=== PATIENT | male | born 1995 ===

== ENCOUNTER 2020-04-09 22:06 | Emergency (ER) | payer SELFPAY ==
--- NOTE | 2020-04-09 23:09 | Event Note ---
ED Screening Note ED Screening Note: Patient presents to the emergency room with complaints of left ankle and foot pain that began just prior to arrival states playing basketball and fell off the concrete He has been ambulatory with discomfort States he has a history of 2 torn ligaments which he never had surgery did not follow back up for when he was in high school No numbness or weakness This initial assessment/diagnostic orders/clinical plan/treatment(s) is/are subject to change based on patients health status, clinical progression and re- assessment by fellow clinical providers in the ED. Further treatment and workup at subsequent clinical providers discretion. Patient/guardian urged not to elope from the ED as their condition may be serious if not clinically assessed and managed. Initial orders include: XRs
[2020-04-09 23:10] VITALS: BP 117/71
--- NOTE | 2020-04-09 23:44 | XRay Report ---
LEFT ANKLE 3 VIEWS INDICATION / CLINICAL INFORMATION: left ankle pain s/p basketball injury. COMPARISON: None available. FINDINGS: BONES/JOINT(S): No acute fracture or subluxation. No acute findings. There is a chronic (remote) smal l avulsion injury from the anterior dorsal aspect of the talus. SOFT TISSUES: No significant abnormality. ADDITIONAL FINDINGS: None. Signer Name: Ephraim Hurt MD Signed: 04/09/2020 11:40 PM Workstation Name: [id number]
--- NOTE | 2020-04-09 23:45 | XRay Report ---
LEFT FOOT 3 VIEW INDICATION / CLINICAL INFORMATION: left ankle/foot pain s/p basketball injury. COMPARISON: None available. FINDINGS: BONES/JOINT(S): No acute fracture or subluxation. No significant degenerative changes. SOFT TISSUES: No significant abnormality. ADDITIONAL FINDINGS: None. Signer Name: Ephraim Hurt MD Signed: 04/09/2020 11:40 PM Workstation Name: [id number]
[2020-04-10] MEDS ORDERED: ACETAMINOPHEN 325 MG TAB PO ONE (04:53)
[2020-04-10] MEDS ORDERED: DIPHtheria,PERTUSSIS(ACELL),TETANUS VACCINE/PF 0.5 ML VIAL IM ONE (05:52)
--- NOTE | 2020-04-10 05:58 | Emergency Department Report ---
ED Lower Extremity HPI - General Chief Complaint: Extremity Injury, Lower Stated Complaint: LEFT ANKLE PAIN Time Seen by Provider: 04/09/20 23:07 Source: patient Mode of arrival: Ambulatory Limitations: No Limitations - History of Present Illness Initial Comments: Patient presents to the emergency room with complaints of left ankle and foot pain that began just prior to arrival. he states he was playing basketball and fell off the concrete. he states he has an abrasion secondary to scraping across the concrete. he has left ankle pain and swelling. He has been ambulatory with discomfort. States he has a history of 2 torn ligaments of the left ankle which he never had surgery did not follow back up for when he was in high school. he denies any numbness or weakness. no allergies to meds. - Related Data Previous Rx's Medication Instructions Recorded Last Taken Type Acetaminophen/Codeine [Tylenol 1 tab PO Q6H PRN #10 tab 04/10/20 Unknown Rx /Codeine # 3 tab] Ibuprofen [Motrin 600 MG tab] 600 mg PO Q8H PRN #20 tablet 04/10/20 Unknown Rx Allergies Allergy/AdvReac Type Severity Reaction Status Date / Time No Known Allergies Allergy Unverified 04/09/20 23:09 ED Review of Systems ROS: Stated complaint: LEFT ANKLE PAIN Other details as noted in HPI Comment: All other systems reviewed and negative ED Past Medical Hx - Social History Smoking Status: Never Smoker Substance Use Type: None - Medications Home Medications: Home Medications Medication Instructions Recorded Confirmed Last Taken Type Acetaminophen/Codeine [Tylenol 1 tab PO Q6H PRN #10 tab 04/10/20 Unknown Rx /Codeine # 3 tab] Ibuprofen [Motrin 600 MG tab] 600 mg PO Q8H PRN #20 tablet 04/10/20 Unknown Rx ED Physical Exam - General Limitations: No Limitations General appearance: alert, in no apparent distress - Head Head exam: Present: atraumatic, normocephalic - Eye Eye exam: Present: normal appearance - ENT ENT exam: Present: mucous membranes moist - Respiratory Respiratory exam: Absent: respiratory distress, accessory muscle use - Extremities Exam Extremities exam: Present: other (edema and ttp overlying the left medial malleolus, there is an abrasion superior to the medial malleolus, decreased ROM of the left ankle secondary to pain, no ttp of the left foot or toes, neurovascularly intact) - Neurological Exam Neurological exam: Present: alert, oriented X3 - Psychiatric Psychiatric exam: Present: normal affect, normal mood - Skin Skin exam: Present: warm, dry ED Course Vital Signs 04/09/20 23:09 Temperature 97.6 F Pulse Rate 74 Respiratory 17 Rate Blood Pressure 117/71 O2 Sat by Pulse 96 Oximetry ED Lower Extremity MDM - Radiology Data Radiology results: report reviewed, image reviewed Ordering Physician: GANESH DOBBS Date of Service: 04/09/20 Procedure(s): XR foot 3+V LT Accession Number(s): [id number] cc: GANESH DOBBS Fluoro Time In Minutes: LEFT FOOT 3 VIEW INDICATION / CLINICAL INFORMATION: left ankle/foot pain s/p basketball injury. COMPARISON: None available. FINDINGS: BONES/JOINT(S): No acute fracture or subluxation. No significant degenerative c hanges. SOFT TISSUES: No significant abnormality. ADDITIONAL FINDINGS: None. Signer Name: Ephraim Hurt MD Signed: 04/09/2020 11:40 PM Workstation Name: [id number] Transcribed By: THOMAS Dictated By: Ephraim Hurt MD Electronically Authenticated By: Ephraim Hurt MD Signed Date/Time: 04/09/202339 DD/ 39 TD/TT: Ordering Physician: GANESH DOBBS Date of Service: 04/09/20 Procedure(s): XR ankle 3+V LT Accession Number(s): [id number] cc: GANESH DOBBS Fluoro Time In Minutes: LEFT ANKLE 3 VIEWS INDICATION / CLINICAL INFORMATION: left ankle pain s/p basketball injury. COMPARISON: None available. FINDINGS: BONES/JOINT(S): No acute fracture or subluxation. No acute findings. There is a chronic (remote) small avulsion injury from the anterior dorsal aspect of the talus. SOFT TISSUES: No significant abnormality. ADDITIONAL FINDINGS: None. Signer Name: Ephraim Hurt MD Signed: 04/09/2020 11:40 PM Workstation Name: [id number] Transcribed By: THOMAS Dictated By: Ephraim Hurt MD Electronically Authenticated By: Ephraim Hurt MD Signed Date/Time: 04/09/202339 DD/ 38 TD/TT: - Medical Decision Making Patient presents to the emergency room with complaints of left ankle and foot pain that began just prior to arrival. he states he was playing basketball and fell off the concrete. he states he has an abrasion secondary to scraping across the concrete. he has left ankle pain and swelling. He has been ambulatory with discomfort. States he has a history of 2 torn ligaments of the left ankle which he never had surgery did not follow back up for when he was in high school. he denies any numbness or weakness. no allergies to meds. vitals are normal. on exam:edema and ttp overlying the left medial malleolus, there is an abrasion superior to the medial malleolus, decreased ROM of the left ankle secondary to pain, no ttp of the left foot or toes, neurovascularly intact. XR left foot: BONES/JOINT(S): No acute fracture or subluxation. No significant degenerative changes. SOFT TISSUES: No significant abnormality. ADDITIONAL FINDINGS: None. XR left ankle: BONES/JOINT(S): No acute fracture or subluxation. No acute findings. There is a chronic (remote) small avulsion injury from the anterior dorsal aspect of the talus. SOFT TISSUES: No significant abnormality. ADDITIONAL FINDINGS: None. Patient is unsure of his last tetanus immunization: Due to abrasion patient given Tdap. Patient given Tylenol in the emergency emergency department. Discussed all results with patient and answered questions. Patient placed in ankle stirrup splint and given crutches by aircraft pneudraulics repairer and remained neurovascularly intact. Patient be referred to orthopedic to rule out ligamentous/tendon injury. Discussed wound care with patient. Patient given prescription for Tylenol with codeine and ibuprofen. Advised patient to please take medication as prescribed as needed. Do not drive or operate machinery while taking severe pain medication. May use ice for 15 minutes at a time, rest, elevation of the leg. Do not bear on the weight on the leg until you have been cleared by orthopedic doctor. Please keep area clean, dry, covered. May wash with antibacterial soap and water and pat dry. No hot tub or pool. Return to emergency room for any new or worsening symptoms. - Differential Diagnosis Strain, sprain, fracture, dislocation, tendinitis, contusion, abrasion Critical care attestation.: If time is entered above; I have spent that time in minutes in the direct care of this critically ill patient, excluding procedure time. ED Disposition Clinical Impression: Abrasion, left ankle, initial encounter Left ankle sprain Qualifiers: Encounter type: initial encounter Involved ligament of ankle: unspecified ligament Qualified Code(s): S93.402A - Sprain of unspecified ligament of left ankle, initial encounter Disposition: TO HOME OR SELFCARE Is pt being admited?: No Does the pt Need Aspirin: No Condition: Stable Instructions: Ankle Sprain, [id number], Wound Care, Adult Additional Instructions: please take medication as prescribed as needed. Do not drive or operate machinery while taking severe pain medication. May use ice for 15 minutes at a time, rest, elevation of the leg. Do not bear on the weight on the leg until you have been cleared by orthopedic doctor. Please keep area clean, dry, covered. May wash with antibacterial soap and water and pat dry. No hot tub or pool. Return to emergency room for any new or worsening symptoms. Prescriptions: Ibuprofen [Motrin 600 MG tab] 600 mg PO Q8H PRN #20 tablet PRN Reason: Pain, Moderate (4-6) Acetaminophen/Codeine [Tylenol /Codeine # 3 tab] 1 tab PO Q6H PRN #10 tab PRN Reason: Pain , Severe (7-10) Referrals: PRIMARY CAREMD [Primary Care Provider] - 2-3 Days ARMANDO MEDINA MD [Staff Physician] - 2-3 Days [facility] [Provider Group] - 2-3 Days Time of Disposition: 05:59 Print Language: RWANDAN
== END 2020-04-10 07:15 | disposition home or self-care (01) ==
LOC: ED 22:06
DX: S93.402A Sprain of unspecified ligament of left ankle, initial encounter (principal); Z79.899 Other long term (current) drug therapy; W18.30XA Fall on same level, unspecified, initial encounter; Y93.67 Activity, basketball; Y92.89 Other specified places as the place of occurrence of the external cause; Y99.8 Other external cause status
CPT/HCPCS: 90471; 90715